=== PATIENT | male | born 1990 | race Caucasian/White ===

== ENCOUNTER 2018-09-20 02:30 | Emergency (ER) | payer BC, OTHER, SELFPAY ==
--- NOTE | 2018-09-20 02:57 | ED.RN ---
THIS NURSE CONTACTED MOTHER, TO REQUEST SHE COME TO THE ER. SHE STATES IT WILL TAKE APPROX 30 MIN
--- NOTE | 2018-09-20 03:07 | ED.RN ---
PER DR KELLER, OK TO REMOVE AUTOPULSE
--- NOTE | 2018-09-20 03:18 | ED.DCSUM_ITS ---
- ER Visit Summary Date of Service: 09/20/18 Chief Complaint: [] Cardiac arrest History of Present Illness: The patient is a 28 M [] patient had a cardiac arrest. Last seen 45 minutes approximately prior to coming in by his roommate. He checked on him and patient was unresponsive. Called paramedics. Paramedics arrived and patient was asystole. They put a Combitube in and gave him epinephrine through an IO and did CPR for 15 minutes before they brought him in. There is unsure what the cause is but he stated he does have a history of opiate abuse. Physical Examination: [] Vital signs unable to obtain secondary to CPR General patient is cyanotic and comatose with a GCS of 3 Airway patient has a Combitube in place and is being bagged valve mass Cardiovascular no pulses CPR in progress Secondary survey head shows no evidence of trauma Eyes pupils are fixed and dilated at 5 mm. No movements. Neck: Positive cyanosis Abdominal exam: Soft, no masses Extremities nontender no edema no tract garcia Skin: Positive cyanosis Neurologic: GCS 3 Test Results: [] Emergency Department Course and Treatment: [] Patient placed on the monitor and is in asystole. ACLS protocol done for approximately 15 minutes with no return of spontaneous circulation. Patient remained in asystole. He was given multiple rounds of epinephrine. Given 2 rounds of bicarbonate. Given 1 round of calcium and dextrose. IVs were established. Patient was intubated by myself with a 7 oh ET tube 23 at the lips without complication. Patient was unable to be revived Treatment Plan: [] Disposition: [] Impression: [] Cardio pulmonary arrest Critical care time 30-74 minutes This note was generated with [facility] dictation software. It may contain incorrect words, spelling, and punctuation that were not noted in review of the chart prior to signing ED Disposition - Plan for ED Patient: Referrals: Bar Garces III, MD [Primary Care Provider] -
== END 2018-09-20 02:39 ==
PROVIDERS: Emergency Provider Emergency Medicine; Family Provider Family Medicine; PCP Family Medicine
DX: I46.9 Cardiac arrest, cause unspecified (principal); F11.10 Opioid abuse, uncomplicated
CPT/HCPCS: 99291; J7030; A4216